=== PATIENT | female | born 1965 | race Asian ===

== ENCOUNTER 2018-02-27 09:24 | Emergency (ER) | payer OTHER ==
[~2018-02-27] VITALS: Ht 162.6 cm; Wt 83.5 kg
--- NOTE | 2018-02-27 09:30 | NUR ---
PRESENTS TO ER C/O DIZZINESS, WEAKNESS, HEADACHE ~ 3 WEEKS. PATIENT IS A/OX 4. BREATHING EVEN AND UNLABORED. NO SOB, NAD, VITALS STABLE. SAFETY AND COMFORT MEASURES IN PLACE. AWAITING MD ORDERS.
[2018-02-27] MEDS ORDERED: MECLIZINE HCL 25 MG TABLET ONE (09:56)
[2018-02-27] MEDS ORDERED: MECLIZINE HCL 25 MG TABLET PO ONE (10:00)
--- NOTE | 2018-02-27 10:01 | NUR ---
MEDICATED PATIENT PER MD ORDERS.
--- NOTE | 2018-02-27 10:04 | NUR ---
IV INSERTION NOT REQUIRED AT THIS TIME PER DR. TAN, STATISTICIAN THEORETICAL INFORMED TO DRAW. BLOOD.
--- NOTE | 2018-02-27 10:08 | NUR ---
AUTO TUNE UP MECHANIC AT BEDSIDE.
[2018-02-27 10:27] LABS: BASOPHILS % (AUTO) 0.6 % (0.0-2.0); EOSINOPHILS % (AUTO) 5.7 % (0.0-6.0); HEMATOCRIT 40 % (33-45); HEMOGLOBIN 13.7 g/dL (11.5-14.8); LYMPHOCYTES # (AUTO) 1.4 /CMM (0.8-4.8); LYMPHOCYTES % (AUTO) 25.1 % (20.0-44.0); MEAN CORPUSCULAR HGB CONC 34 g/dl (31.0-36.0); MEAN CORPUSCULAR VOLUME 79 fL (82-100); MONOCYTES # (AUTO) 0.4 /CMM (0.1-1.30); MONOCYTES % (AUTO) 7.2 % (2.0-12.0); NEUTROPHILS # (AUTO) 3.5 /CMM (1.8-8.9); NEUTROPHILS % (AUTO) 61.4 % (43.0-81.0); PLATELET COUNT (AUTO) 242 /CMM (150-450); RDW COEFFICIENT OF VARIATION 14.1 (11.5-15.0); RED BLOOD CELL COUNT(AUTO) 5.08 MIL/uL (4.0-5.2); WHITE BLOOD COUNT (AUTO) 5.6 K/uL (4.3-11.0)
[2018-02-27 10:35] LABS: CALCIUM, SERUM 8.4 mg/dL (8.5-10.1); CARBON DIOXIDE 29 mmol/L (21-32); CHLORIDE 103 mmol/L (98-107); CREATININE 0.6 mg/dL (0.6-1.3); GLUCOSE 115 mg/dL (74-106); POTASSIUM 4.1 mmol/L (3.5-5.1); SODIUM SERUM 141 mmol/L (136-145); UREA NITROGEN, BLOOD 15 mg/dL (7-18)
[2018-02-27 10:43] LABS: TROPONIN I < 0.017 ng/mL (0.00-0.056)
[2018-02-27 10:47] LABS: INR 0.91 (0.87-1.13)
[2018-02-27] MEDS ORDERED: IV NS 0.9% 1,000 ML BAG IV ONE (11:00)
[2018-02-27 11:43] LABS: APPEARANCE,URINE Slightly Cloudy (CLEAR); BILIRUBIN,URINE Negative (NEGATIVE); BLOOD, URINE Small Ery/uL (NEGATIVE); COLOR,URINE Yellow (YELLOW); KETONES,URINE Negative (NEGATIVE); LEUKOCYTE ESTERASE ,URINE Trace (NEGATIVE); NITRITE, URINE Negative (NEGATIVE); PH,URINE 5.5 (5.0-8.0); PROTEIN,URINE Negative (NEGATIVE); UGLUCOSE Negative (NEGATIVE); UROBILINOGEN,URINE 0.2 EU/dL (0.2)
[2018-02-27 11:49] VITALS: BP 122/76
--- NOTE | 2018-02-27 11:50 | NUR ---
IV removed. Catheter intact and site benign. Pressure and 4x4 applied to site. No bleeding noted. Patient discharged to home in stable condition. Written and verbal after care instructions given. Patient verbalizes understanding of instruction.
[2018-02-27 12:00] LABS: BACTERIA,URINE Moderate /HPF (None Seen); SQUAMOUS EPITHELIAL CELL,UR Moderate /HPF (None Seen)
== END 2018-02-27 11:50 | disposition home or self-care (01) ==
LOC: ER 09:25
DX: H81.10 Benign paroxysmal vertigo, unspecified ear (principal)
CPT/HCPCS: 36415; 71045-TC; 80048-TC; 81000-TC; 84484-TC; 85025-TC; 85730-TC; 87086-TC; A4606; J7030; J8597; Z7610

== ENCOUNTER 2019-10-14 01:31 | Emergency (ER) | payer OTHER ==
[~2019-10-14] VITALS: Ht 162.6 cm; Wt 68.0 kg
--- NOTE | 2019-10-14 01:45 | NUR ---
BIBA FOR C/O ABD PAIN. -N/V/D. VSS. PLACED ON A MONITOR,
[2019-10-14] MEDS ORDERED: MORPHINE SULFATE INJ 4 MG/ML DISP.SYRIN ONE (01:48)
[2019-10-14] MEDS ORDERED: ONDANSETRON HCL/PF 4 MG/2 ML VIAL ONE (01:48)
[2019-10-14] MEDS ORDERED: IV NS 0.9% 1,000 ML BAG IV ONE (02:00)
[2019-10-14] MEDS ORDERED: ONDANSETRON HCL/PF 4 MG/2 ML VIAL IVP ONE (02:00)
[2019-10-14] MEDS ORDERED: MORPHINE SULFATE INJ 2 MG/ML DISP.SYRIN IV ONE (02:00)
[2019-10-14 02:05] LABS: CALCIUM, SERUM 9.3 mg/dL (8.5-10.1); CREATININE 0.8 mg/dL (0.6-1.3); POTASSIUM 3.5 mmol/L (3.5-5.1)
[2019-10-14 02:06] LABS: BASOPHILS # (AUTO) 0.1 /CMM (0.0-0.2); EOSINOPHILS % (AUTO) 3.6 % (0.0-6.0); HEMATOCRIT 40 % (33-45); HEMOGLOBIN 13.1 g/dL (11.5-14.8); LYMPHOCYTES # (AUTO) 2.1 /CMM (0.8-4.8); LYMPHOCYTES % (AUTO) 29.3 % (20.0-44.0); MEAN CORPUSCULAR HGB CONC 33 g/dl (31.0-36.0); MEAN CORPUSCULAR VOLUME 80 fL (82-100); MONOCYTES # (AUTO) 0.5 /CMM (0.1-1.30); MONOCYTES % (AUTO) 7.6 % (2.0-12.0); NEUTROPHILS # (AUTO) 4.1 /CMM (1.8-8.9); NEUTROPHILS % (AUTO) 58.5 % (43.0-81.0); PLATELET COUNT (AUTO) 243 /CMM (150-450); RED BLOOD CELL COUNT(AUTO) 4.99 MIL/uL (4.0-5.2)
[2019-10-14 02:10] LABS: ALBUMIN 3.5 g/dL (3.4-5.0); BILIRUBIN,DIRECT 0.1 mg/dL (0.0-0.2); BILIRUBIN,TOTAL 0.2 mg/dL (0.2-1.0); TOTAL PROTEIN, SERUM 7.6 g/dL (6.4-8.2)
[2019-10-14 03:36] VITALS: BP 119/68
--- NOTE | 2019-10-14 03:36 | NUR ---
IV removed. Catheter intact and site benign. Pressure and 4x4 applied to site. No bleeding noted.Patient discharged to home in stable condition. Rx and Written and verbal after care instructions given. Patient verbalizes understanding of instruction.
== END 2019-10-14 03:37 | disposition home or self-care (01) ==
LOC: ER 01:32
DX: K80.20 Calculus of gallbladder without cholecystitis without obstruction (principal)
CPT/HCPCS: 36415; 74176; 80048; 80076; 83690; 85025; 96374; 96375; 99284; J2270; J2405; J7030

== ENCOUNTER 2020-07-01 08:42 | Emergency (ER) | payer OTHER ==
[~2020-07-01] VITALS: Ht 167.6 cm; Wt 86.2 kg
[2020-07-01 08:57] VITALS: BP 126/75
[2020-07-01] MEDS ORDERED: IBUPROFEN 400 MG TABLET PO ONE (10:00)
[2020-07-01] MEDS ORDERED: IBUPROFEN 400 MG TABLET ONE (10:14)
--- NOTE | 2020-07-01 10:15 | NUR ---
Patient discharged to home in stable condition. Written and verbal after care instructions given. Patient verbalizes understanding of instruction.
== END 2020-07-01 10:16 | disposition home or self-care (01) ==
LOC: ER 08:44
DX: T16.2XXA Foreign body in left ear, initial encounter (principal); H66.92 Otitis media, unspecified, left ear; X58.XXXA Exposure to other specified factors, initial encounter; Y93.89 Activity, other specified; Y92.89 Other specified places as the place of occurrence of the external cause; Y99.8 Other external cause status
CPT/HCPCS: 69200; 99284; A6403